=== PATIENT | male | born 1950 | race Caucasian/White ===

== ENCOUNTER 2020-04-23 10:45 | Day surgery (SDC) | payer MEDICARE ==
[2020-04-23] VITALS (8 sets, daily range): BP systolic 107–137; BP diastolic 73–86
[~2020-04-23] VITALS: Ht 182.9 cm; Wt 104.6 kg
[~2020-04-23 10:45] MED LIST: iohexol 350 MG/ML 50ML vial IV ONE; iohexol 350MG/ML 100ml bottle IV ONE
[2020-04-23] MEDS ORDERED: SIMV-45 PO (11:14)
[2020-04-23] MEDS ORDERED: NITR0.4T48 SL (11:14)
[2020-04-23] MEDS ORDERED: BENA10TA75 PO (11:14)
[2020-04-23] MEDS ORDERED: COLC1TAB2 PO (11:14)
[2020-04-23] MEDS ORDERED: normal saline 1,000 ML IV SCH ×2 (11:15→12:50)
[2020-04-23] MEDS ORDERED: diphenhydrAMINE 25mg capsule PO PRN (11:15)
[2020-04-23] MEDS ORDERED: APPLE CIDER (11:16)
[2020-04-23] MEDS ORDERED: ASPI-1265 PO (11:16)
[2020-04-23] MEDS ORDERED: MULT-1085 PO (11:16)
[2020-04-23] MEDS ORDERED: tumeric (11:16)
[2020-04-23] MEDS ORDERED: midazolam 2 mg/2 ml injection ONE ×2 (11:43→11:56)
[2020-04-23] MEDS ORDERED: fentaNYL/PF 50MCG/1 ML 2ML syringe ONE (11:43)
[2020-04-23] MEDS ORDERED: heparin 1,000unit/ml 10ml vial 10 ML ONE (11:44)
[2020-04-23] MEDS ORDERED: iohexol 350 MG/ML 50ML vial IV ONE (11:44)
[2020-04-23] MEDS ORDERED: LIDOcaine 1% (10mg/ml)w/preservative injection 20ml MDV ONE (11:44)
[2020-04-23] MEDS ORDERED: iohexol 350MG/ML 100ml bottle IV ONE (11:44)
[2020-04-23 11:49] LABS: BASOPHILS % (AUTO) 0.3 % (0-1); EOSINOPHILS # (AUTO) 0.2 X10'3 (0-0.9); EOSINOPHILS % (AUTO) 1.8 % (0-6); HEMATOCRIT 49.5 % (42.0-52.0); HEMOGLOBIN 16.8 g/dl (14.0-17.9); LYMPHOCYTES # (AUTO) 2.1 X10'3 (1.1-4.8); LYMPHOCYTES % (AUTO) 20.4 % (21-51); MEAN CORPUSCULAR HEMOGLOBIN 30.8 PG (27.0-31.0); MEAN CORPUSCULAR HGB CONC 33.9 g/dL (33.0-36.5); MEAN CORPUSCULAR VOLUME 90.7 FL (78-98); MEAN PLATELET VOLUME 7.4 FL (7.4-10.4); MONOCYTES # (AUTO) 0.8 X10'3 (0-0.9); MONOCYTES % (AUTO) 7.6 % (2-12); NEUTROPHILS # (AUTO) 7.2 X10'3 (1.8-7.7); NEUTROPHILS % (AUTO) 69.9 % (42-75); PLATELET COUNT 316 X10'3 (140-440); RED BLOOD COUNT 5.45 X10'6 (4.70-6.10); RED CELL DISTRIBUTION WIDTH 13.4 % (11.5-14.5); WHITE BLOOD COUNT 10.3 X10'3 (4.5-11.0)
[2020-04-23 12:09] LABS: ALBUMIN 4.3 G/DL (3.4-5.0); ANION GAP 9 (8-16); BLOOD UREA NITROGEN 30 MG/DL (7-18); BUN/CREATININE RATIO 18.4 (5.4-32.0); CALCIUM 9.1 MG/DL (8.5-10.1); CHLORIDE 106 MMOL/L (99-107); CREATININE 1.63 MG/DL (0.60-1.10); GLUCOSE 101 MG/DL (70-104); MAGNESIUM 2.4 MG/DL (1.5-2.4); SODIUM 142 MMOL/L (135-145); TOTAL CARBON DIOXIDE 27.1 MMOL/L (24-32); eGFR 42 ML/MIN
[2020-04-23] MEDS ORDERED: HYDROcodone/acetaminophen 10/325mg tab PO PRN (12:50)
[2020-04-23] MEDS ORDERED: ondansetron/PF 4mg/2ml inj IV PRN (12:50)
[2020-04-23] MEDS ORDERED: proCHLORperazine 10 MG/2 ml inj IV PRN (12:50)
[2020-04-23] MEDS ORDERED: HYDROcodone/acetaminophen 5mg/325mg tablet PO PRN (12:50)
== END 2020-04-23 15:30 | disposition home or self-care (01) ==
LOC: SSTAY O 10:45
PROVIDERS: ATTEND Internal Medicine Cardiovascular Disease
DX: R07.89 Other chest pain (principal); I25.10 Atherosclerotic heart disease of native coronary artery without angina pectoris; E78.5 Hyperlipidemia, unspecified; I48.0 Paroxysmal atrial fibrillation; E11.22 Type 2 diabetes mellitus with diabetic chronic kidney disease; I12.9 Hypertensive chronic kidney disease with stage 1 through stage 4 chronic kidney disease, or unspecified chronic kidney disease; N18.9 Chronic kidney disease, unspecified; Z87.891 Personal history of nicotine dependence; Z79.899 Other long term (current) drug therapy; Z79.82 Long term (current) use of aspirin
CPT/HCPCS: 36415; 80048; 83735; 85025; 85610; 93005; 93458; 99152; C1760; C1769; C1894; J1644; J2001; J2250; J3010; J7030; Q0163; Q9967; 99153; A6258

== ENCOUNTER 2020-07-14 11:03 | Emergency (ER) | payer MEDICARE ==
[~2020-07-14] VITALS: Ht 182.9 cm; Wt 100.0 kg
[~2020-07-14 11:03] MED LIST changes: +APPLE CIDER; +ASPI-1265 PO; +BENA10TA75 PO; +COLC1TAB2 PO; +MULT-1085 PO; +NITR0.4T48 SL; +SIMV-45 PO; -iohexol 350 MG/ML 50ML vial IV ONE; -iohexol 350MG/ML 100ml bottle IV ONE; +tumeric
[2020-07-14 11:43] LABS: BASOPHILS % (AUTO) 0.4 % (0-1); EOSINOPHILS # (AUTO) 0.1 X10'3 (0-0.9); EOSINOPHILS % (AUTO) 1.7 % (0-6); HEMATOCRIT 46.1 % (42.0-52.0); HEMOGLOBIN 15.5 g/dl (14.0-17.9); LYMPHOCYTES # (AUTO) 1.7 X10'3 (1.1-4.8); MEAN CORPUSCULAR HEMOGLOBIN 30.9 PG (27.0-31.0); MEAN CORPUSCULAR HGB CONC 33.7 g/dL (33.0-36.5); MEAN CORPUSCULAR VOLUME 91.6 FL (78-98); MEAN PLATELET VOLUME 7.3 FL (7.4-10.4); MONOCYTES # (AUTO) 0.6 X10'3 (0-0.9); MONOCYTES % (AUTO) 6.8 % (2-12); NEUTROPHILS # (AUTO) 5.7 X10'3 (1.8-7.7); NEUTROPHILS % (AUTO) 70.1 % (42-75); PLATELET COUNT 305 X10'3 (140-440); RED BLOOD COUNT 5.03 X10'6 (4.70-6.10); RED CELL DISTRIBUTION WIDTH 13.5 % (11.5-14.5); WHITE BLOOD COUNT 8.1 X10'3 (4.5-11.0)
--- NOTE | 2020-07-14 11:49 | NUR ---
PT TO XRAY, PT C/O IRREGULAR HEARTBEAT, CHEST "TIGHTNESS" OFF AND ON, HEADACHE FOR 1 WEEK, TODAY "MY HEAD FEELS CONSTANT FUZZY", HAD NECK ADJUSTED AT [facility] THURSDAY, PT IS G[facility] 17, ALERT AND ORIENTED, RESP EVEN AND UNLABORED, SKIN P/W/D, NO CHEST PAIN/DISCOMFORT NOW, PT HAD HEART CATH 04/19, NO COMPLICATIONS
[2020-07-14] MEDS ORDERED: COLC1TAB2 PO (11:57)
[2020-07-14 12:00] LABS: ALANINE AMINOTRANSFERASE 28 U/L (12-78); ALBUMIN 3.9 G/DL (3.4-5.0); ALBUMIN/GLOBULIN RATIO 0.9 (1.1-1.5); ALKALINE PHOSPHATASE 66 IU/L (46-116); ANION GAP 11 (8-16); ASPARTATE AMINO TRANSFERASE 18 U/L (10-37); BILIRUBIN,TOTAL 0.4 MG/DL (0.1-1.0); BLOOD UREA NITROGEN 32 MG/DL (7-18); CHLORIDE 106 MMOL/L (99-107); GLUCOSE 147 MG/DL (70-104); POTASSIUM 3.8 MMOL/L (3.5-5.1); SODIUM 141 MMOL/L (135-145); TOTAL CARBON DIOXIDE 23.6 MMOL/L (24-32); TOTAL PROTEIN 8.1 G/DL (6.4-8.2); eGFR 43 ML/MIN
--- NOTE | 2020-07-14 13:36 | NUR ---
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
--- NOTE | 2020-07-14 13:59 | NUR ---
PT IS RESTING QUIETLY ON GURNEY, NO CHEST PAIN/DISCOMFORT, GAVE PT WATER
[2020-07-14 15:36] VITALS: BP 124/82
== END 2020-07-14 15:37 | disposition home or self-care (01) ==
LOC: ER 11:04
DX: R07.89 Other chest pain (principal); R00.2 Palpitations; R51.9 Headache, unspecified; I10 Essential (primary) hypertension; E78.5 Hyperlipidemia, unspecified; Z79.82 Long term (current) use of aspirin; Z79.899 Other long term (current) drug therapy
CPT/HCPCS: 36415; 70450; 71045; 80053; 83880; 84484; 85025; 93005; 99285

== ENCOUNTER 2020-10-15 18:39 | Emergency (ER) | payer MEDICARE ==
[~2020-10-15] VITALS: Ht 185.4 cm; Wt 100.0 kg
[2020-10-15] MEDS ORDERED: acetaminophen 325mg tablet PO ONE (19:55)
[2020-10-15 20:23] LABS: BASOPHILS # (AUTO) 0.1 X10'3 (0-0.2); BASOPHILS % (AUTO) 0.4 % (0-1); EOSINOPHILS # (AUTO) 0.1 X10'3 (0-0.9); EOSINOPHILS % (AUTO) 0.9 % (0-6); HEMATOCRIT 42.4 % (42.0-52.0); HEMOGLOBIN 14.5 g/dl (14.0-17.9); LYMPHOCYTES # (AUTO) 1.6 X10'3 (1.1-4.8); LYMPHOCYTES % (AUTO) 10.6 % (21-51); MEAN CORPUSCULAR HGB CONC 34.2 g/dL (33.0-36.5); MEAN CORPUSCULAR VOLUME 90.7 FL (78-98); MEAN PLATELET VOLUME 7.3 FL (7.4-10.4); MONOCYTES # (AUTO) 1.3 X10'3 (0-0.9); MONOCYTES % (AUTO) 8.7 % (2-12); NEUTROPHILS # (AUTO) 12.1 X10'3 (1.8-7.7); NEUTROPHILS % (AUTO) 79.4 % (42-75); PLATELET COUNT 276 X10'3 (140-440); RED BLOOD COUNT 4.67 X10'6 (4.70-6.10); RED CELL DISTRIBUTION WIDTH 13.3 % (11.5-14.5); WHITE BLOOD COUNT 15.2 X10'3 (4.5-11.0)
[2020-10-15 20:28] LABS: D-DIMER 1.18 MG/L FEU (0-0.50)
[2020-10-15 20:32] LABS: ALANINE AMINOTRANSFERASE 28 U/L (12-78); ALBUMIN 3.1 G/DL (3.4-5.0); ALBUMIN/GLOBULIN RATIO 0.6 (1.1-1.5); ALKALINE PHOSPHATASE 54 IU/L (46-116); ANION GAP 13 (8-16); ASPARTATE AMINO TRANSFERASE 20 U/L (10-37); BILIRUBIN,TOTAL 0.5 MG/DL (0.1-1.0); BLOOD UREA NITROGEN 38 MG/DL (7-18); BUN/CREATININE RATIO 21.5 (5.4-32.0); CALCIUM 8.4 MG/DL (8.5-10.1); CHLORIDE 98 MMOL/L (99-107); CREATININE 1.77 MG/DL (0.60-1.10); GLUCOSE 102 MG/DL (70-104); POTASSIUM 3.7 MMOL/L (3.5-5.1); SODIUM 133 MMOL/L (135-145); TOTAL CARBON DIOXIDE 21.9 MMOL/L (24-32); TOTAL PROTEIN 7.9 G/DL (6.4-8.2); eGFR 38 ML/MIN
[2020-10-15] MEDS ORDERED: iohexol 350MG/ML 100ml bottle IV ONE (20:45)
[2020-10-15] MEDS ORDERED: normal saline 1000ML IV soln IVB ONE (20:45)
[2020-10-15 22:15] VITALS: BP 97/68
== END 2020-10-15 23:20 | disposition home or self-care (01) ==
LOC: ER 18:40
DX: R07.89 Other chest pain (principal); M10.9 Gout, unspecified; I48.0 Paroxysmal atrial fibrillation; E78.00 Pure hypercholesterolemia, unspecified; I10 Essential (primary) hypertension; Z79.82 Long term (current) use of aspirin; Z79.899 Other long term (current) drug therapy
CPT/HCPCS: 36415; 71045; 71275; 80053; 83880; 84484; 85025; 85379; 93005; 96360; 99285; J7030; Q9967

== ENCOUNTER 2020-11-16 06:44 | Day surgery (SDC) | payer MEDICARE ==
[2020-11-08 15:58] LABS: CLARITY,URINE CLEAR (Clear); COLOR,URINE STRAW (Yellow); GLUCOSE, URINE NEGATIVE (Neg); KETONES,URINE NEGATIVE (Neg); LEUKOCYTE ESTERASE ,URINE NEGATIVE (Neg); NITRITES, URINE NEGATIVE (Neg); OCCULT BLOOD,URINE NEGATIVE (Neg); PROTEIN,URINE NEGATIVE (Neg); UROBILINOGEN,URINE 0.2 E.U/dL (0.2-1.0)
[2020-11-08 16:00] LABS: BASOPHILS % (AUTO) 0.3 % (0-1); EOSINOPHILS % (AUTO) 0.1 % (0-6); LYMPHOCYTES # (AUTO) 1.2 X10'3 (1.1-4.8); MEAN CORPUSCULAR HEMOGLOBIN 30.4 PG (27.0-31.0); MEAN CORPUSCULAR HGB CONC 33.3 g/dL (33.0-36.5); MEAN CORPUSCULAR VOLUME 91.3 FL (78-98); MONOCYTES # (AUTO) 0.8 X10'3 (0-0.9); MONOCYTES % (AUTO) 5.7 % (2-12); NEUTROPHILS # (AUTO) 12.7 X10'3 (1.8-7.7); NEUTROPHILS % (AUTO) 85.9 % (42-75); PRE OP HEMATOCRIT 43.4 % (42.0-52.0); PRE OP HEMOGLOBIN 14.4 g/dL (14.0-17.9); PRE OP PLATELET COUNT 305 X10'3 (140-440); RED BLOOD COUNT 4.75 X10'6 (4.70-6.10); RED CELL DISTRIBUTION WIDTH 13.9 % (11.5-14.5)
[2020-11-08 16:06] LABS: UA COLLECTION TYPE CLN CATCH MIDSTREAM
[2020-11-08 16:11] LABS: ALBUMIN 3.6 G/DL (3.4-5.0); ALBUMIN/GLOBULIN RATIO 0.8 (1.1-1.5); ALKALINE PHOSPHATASE 65 IU/L (46-116); BLOOD UREA NITROGEN 33 MG/DL (7-18); BUN/CREATININE RATIO 19.9 (5.4-32.0); CALCIUM 8.9 MG/DL (8.5-10.1); CHLORIDE 104 MMOL/L (99-107); CREATININE 1.66 MG/DL (0.60-1.10); PRE OP ALT 30 U/L (30-65); PRE OP ANION GAP 9 (8-16); PRE OP AST 15 U/L (10-37); PRE OP BILIRUB, TOTAL 0.4 MG/DL (0.0-1.0); PRE OP GLUCOSE 117 MG/DL (70-104); PRE OP POTASSIUM 4.2 MMOL/L (3.4-5.1); PRE OP SODIUM 141 MMOL/L (135-145); TOTAL PROTEIN 8.2 G/DL (6.4-8.2); eGFR 41 ML/MIN
[~2020-11-16] VITALS: Ht 182.9 cm; Wt 103.7 kg
[2020-11-16] VITALS (11 sets, daily range): BP systolic 112–152; BP diastolic 76–98
[~2020-11-16 06:44] MED LIST changes: +ALLO100T25 PO; -COLC1TAB2 PO; +PRED10TA23 PO; +cefazolin/dext.iso 2gm/100ml IV ONE; +famotidine 20mg tablet PO ONE; +ringers solution, lacted 1,000 ML IV SCH
[2020-11-16] MEDS ORDERED: HYDR-3965 PO (07:27)
[2020-11-16] MEDS ORDERED: sevoflurane 250ml liquid IH ONE (09:48)
[2020-11-16] MEDS ORDERED: dexamethasone sod phosphate 10mg/ml inj ONE (09:48)
[2020-11-16] MEDS ORDERED: hydrALAZINE 20mg/ml inj. IV PRN (09:55)
[2020-11-16] MEDS ORDERED: morphine 4 MG/ML inj SYRINge IV PRN (09:55)
[2020-11-16] MEDS ORDERED: morphine 2 MG/ML inj. syringe IV PRN (09:55)
[2020-11-16] MEDS ORDERED: fentaNYL/PF 50MCG/1 ML 2ML syringe IV PRN ×2 (09:55)
[2020-11-16] MEDS ORDERED: labetalol 20mg/4ml (5mg/ml) syringe IV PRN (09:55)
[2020-11-16] MEDS ORDERED: ondansetron/PF 4mg/2ml inj IV PRN (09:55)
[2020-11-16] MEDS ORDERED: ringers solution, lacted 1,000 ML IV SCH (09:55)
[2020-11-16] MEDS ORDERED: midazolam 1 mg/ML 2ml injection ONE (09:57)
[2020-11-16] MEDS ORDERED: fentaNYL/PF 50MCG/1 ML 2ML syringe ONE (09:57)
[2020-11-16] MEDS ORDERED: LIDOcaine 2% (20mg/ml) 5ml vial ONE (10:03)
[2020-11-16] MEDS ORDERED: ROPIVAcaine 0.5% (5mg/ml) 30ml vial ONE (10:03)
[2020-11-16] MEDS ORDERED: ondansetron/PF 4mg/2ml inj ONE (10:04)
[2020-11-16] MEDS ORDERED: propofol inj 20 ML IV ONE (10:04)
[2020-11-16] MEDS ORDERED: bacitracin 15gm ointment TP ONE (11:22)
--- NOTE | 2020-11-16 11:37 | NUR ---
Received from OR via [facility], accompanied by Anesthesiologist DR CAMPOS and report given by Anesthesiologist AND TRAFFIC LINE PAINTER. PT DROWSY, DENIES PAIN. RIGHT FOOT W/GARRETT WRAP COVERING DRSG W/SMALL AMT OF BLOODY DRAINAGE ON DRSG, 2ND AND 5TH TOE W/PINS INTACT. WALKING BOOT ON AND IN PLACE. Addendum: 11/16/20 at 1213 by Katherine Otto RN Amended: Links added.
--- NOTE | 2020-11-16 13:27 | NUR ---
PT ABLE TO PIVOT TO W/C W/O DIFFICULTY, STATES HE HAS HELP AT HOME, CRUTCHES GIVEN AND DEMONSTRATED, D/C INSTRUCTIONS GIVEN AND GONE OVER W/PT WHO VERBALIZED UNDERSTANDING. PT D/CD TO HOME VIA W/C TO PRIVATE VEHICLE W/O INCIDENT. Addendum: 11/16/20 at 1337 by Katherine Otto RN Amended: Links added.
== END 2020-11-16 13:27 | disposition home or self-care (01) ==
LOC: PRE-OP 06:44
PROVIDERS: ATTEND Podiatrist Foot & Ankle Surgery
DX: M20.41 Other hammer toe(s) (acquired), right foot (principal); M20.5X1 Other deformities of toe(s) (acquired), right foot; M24.574 Contracture, right foot; G89.18 Other acute postprocedural pain; M19.071 Primary osteoarthritis, right ankle and foot; M19.072 Primary osteoarthritis, left ankle and foot; M10.9 Gout, unspecified; I12.9 Hypertensive chronic kidney disease with stage 1 through stage 4 chronic kidney disease, or unspecified chronic kidney disease; N18.9 Chronic kidney disease, unspecified; Z79.899 Other long term (current) drug therapy; Z79.82 Long term (current) use of aspirin; Z20.822 Contact with and (suspected) exposure to COVID-19; Z72.89 Other problems related to lifestyle; Z82.49 Family history of ischemic heart disease and other diseases of the circulatory system
CPT/HCPCS: 28270; 28285; 28298; 36415; 64447; 64450; 73620; 76000; 80053; 81003; 82948; 85025; A6223; C1713; J1100; J2001; J2250; J2405; J2704; J3010; U0003; U0005; Z7506; Z7508; Z7512; 76942; A4618; A6253; A6449; A7000; J2795; J3490; J7120